=== PATIENT | female | born 1990 | race Caucasian/White ===

== ENCOUNTER 2023-01-28 12:02 | Emergency (ER) | payer OTHER ==
[~2023-01-28] VITALS: Ht 157.5 cm; Wt 66.7 kg
[2023-01-28] MEDS ORDERED: POLOS EACHEYE (12:15)
[2023-01-28] MEDS ORDERED: MOXI3DRO25 EACHEYE (12:15)
[2023-01-28 12:23] VITALS: BP 108/63; PULSE 79; RESP 18; TEMP 98; O2SAT 98
== END 2023-01-28 12:28 | disposition home or self-care (01) ==
LOC: ER 12:02
DX: H10.9 Unspecified conjunctivitis (principal); Z77.21 Contact with and (suspected) exposure to potentially hazardous body fluids; F17.200 Nicotine dependence, unspecified, uncomplicated; Z79.899 Other long term (current) drug therapy
CPT/HCPCS: 99283

== ENCOUNTER 2023-02-08 08:57 | Emergency (ER) | payer OTHER ==
[~2023-02-08] VITALS: Ht 157.5 cm; Wt 70.5 kg
[2023-02-08 09:14] VITALS: BP 103/61; PULSE 80; RESP 18; TEMP 98.7; O2SAT 100
[2023-02-08] MEDS ORDERED: TETR-78 EACHEYE (09:29)
== END 2023-02-08 09:33 | disposition home or self-care (01) ==
LOC: ER 08:57
DX: H57.89 Other specified disorders of eye and adnexa (principal); H57.11 Ocular pain, right eye; H57.12 Ocular pain, left eye; Z77.21 Contact with and (suspected) exposure to potentially hazardous body fluids; Z79.899 Other long term (current) drug therapy
CPT/HCPCS: 99282; 99283